=== PATIENT | female | born 2000 | race Caucasian/White ===

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

== ENCOUNTER 2018-01-09 15:49 | Emergency (ER) | payer OTHER ==
[~2018-01-09] VITALS: Ht 167.6 cm; Wt 86.2 kg
[2018-01-09 15:53] VITALS: BP 112/57
[2018-01-09] MEDS ORDERED: VALTREX1000 MG PO (16:04)
== END 2018-01-09 16:04 | disposition home or self-care (01) ==
LOC: ED 15:49
DX: A60.00 Herpesviral infection of urogenital system, unspecified (principal); Z87.891 Personal history of nicotine dependence; Z79.899 Other long term (current) drug therapy

== ENCOUNTER 2018-03-08 11:33 | Emergency (ER) | payer OTHER ==
[~2018-03-08] VITALS: Ht 167.6 cm; Wt 99.8 kg
[~2018-03-08 11:33] MED LIST changes: +VALTREX1000 MG PO
[2018-03-08 11:34] VITALS: BP 115/63
[2018-03-08] MEDS ORDERED: VALTREX500 MG PO (12:04)
[2018-03-08] MEDS ORDERED: PRENATAL 19 CH1 EACH PO (12:07)
== END 2018-03-08 13:34 | disposition home or self-care (01) ==
LOC: ED 11:33
DX: O98.311 Other infections with a predominantly sexual mode of transmission complicating pregnancy, first trimester (principal); A60.00 Herpesviral infection of urogenital system, unspecified; Z76.0 Encounter for issue of repeat prescription; Z3A.01 Less than 8 weeks gestation of pregnancy; Z87.891 Personal history of nicotine dependence

== ENCOUNTER 2018-03-17 09:04 | Emergency (ER) | payer SELFPAY ==
[~2018-03-17] VITALS: Ht 167.6 cm; Wt 96.6 kg
[~2018-03-17 09:04] MED LIST changes: +PRENATAL 19 CH1 EACH PO; +VALTREX500 MG PO
[2018-03-17 09:05] VITALS: BP 117/73
[2018-03-17] MEDS ORDERED: AMOXICILLIN500 M2 PO (09:51)
== END 2018-03-17 09:56 | disposition home or self-care (01) ==
LOC: ED 09:04
DX: O26.891 Other specified pregnancy related conditions, first trimester (principal); J02.9 Acute pharyngitis, unspecified; O99.321 Drug use complicating pregnancy, first trimester; H92.09 Otalgia, unspecified ear; F12.10 Cannabis abuse, uncomplicated; Z79.899 Other long term (current) drug therapy; Z87.891 Personal history of nicotine dependence; Z3A.01 Less than 8 weeks gestation of pregnancy

== ENCOUNTER 2019-01-05 20:14 | Emergency (ER) | payer OTHER ==
[~2019-01-05] VITALS: Ht 167.6 cm; Wt 104.3 kg
[~2019-01-05 20:14] MED LIST changes: +AMOXICILLIN500 M2 PO
[2019-01-05 20:15] VITALS: BP 129/72
== END 2019-01-05 23:31 | disposition home or self-care (01) ==
LOC: ED 20:14
DX: S70.11XA Contusion of right thigh, initial encounter (principal); S70.12XA Contusion of left thigh, initial encounter; Z79.899 Other long term (current) drug therapy; Z87.891 Personal history of nicotine dependence; V86.99XA Unspecified occupant of other special all-terrain or other off-road motor vehicle injured in nontraffic accident, initial encounter; Y93.89 Activity, other specified; Y92.89 Other specified places as the place of occurrence of the external cause; Y99.8 Other external cause status

== ENCOUNTER 2019-03-13 11:57 | Emergency (ER) | payer OTHER ==
[~2019-03-13] VITALS: Ht 167.6 cm; Wt 113.4 kg
[2019-03-13 11:57] VITALS: BP 109/68
[2019-03-13 12:21] LABS: BASO # 0.1 10*3/uL (0.0-0.1); BASO % 0.8 % (0.0-1.0); EOS # 0.1 10*3/uL (0.0-0.4); EOS % 1.5 % (1.0-4.0); HEMATOCRIT 38.7 % (37.0-47.0); HEMOGLOBIN 12.5 g/dl (12.0-16.0); LYMPH # 0.5 10*3/uL (1.3-4.4); LYMPH % 8.3 % (27.0-41.0); MEAN CELL VOLUME 89.8 fl (81.0-99.0); MEAN CORPUSCULAR HGB CONC 32.3 g/dl (33.0-37.0); MEAN PLATELET VOLUME 10.8 fl (9.6-12.3); MONO # 0.9 10*3/uL (0.1-1.0); MONO % 13.8 % (3.0-9.0); NEUT # 4.7 10*3/uL (2.3-7.9); NEUT % 75.3 % (47.0-73.0); PLATELET COUNT AUTOMATED 288 10*3/uL (130-400); RED BLOOD COUNT 4.31 10*6/uL (4.10-5.10); RED CELL DISTRI WIDTH 15.6 % (0-14.5); WHITE BLOOD COUNT 6.2 10*3/uL (4.8-10.8)
[2019-03-13 12:36] LABS: ALBUMIN 3.8 gm/dl (3.1-4.5); ALKALINE PHOSPHATASE 129 U/L (45-117); BUN 10 mg/dl (7-24); CHLORIDE 104 mmol/L (98-107); CREATININE 0.72 mg/dL (0.55-1.02); POTASSIUM 3.8 mmol/L (3.5-5.1); SGOT/AST 25 IU/L (3-35); SGPT/ALT 48 U/L (12-78); SODIUM 132 mmol/L (136-145); TOTAL PROTEIN 7.8 gm/dL (6.4-8.2)
[2019-03-13 12:44] LABS: BILIRUBIN NEGATIVE (NEGATIVE); BLOOD NEGATIVE (NEGATIVE); CLARITY SL CLOUDY (CLEAR); COLOR YELLOW (YELLOW); GLUCOSE NEGATIVE (NEGATIVE); KETONE NEGATIVE (NEGATIVE); LEUKO ESTERASE NEGATIVE (NEGATIVE); NITRITE NEGATIVE (NEGATIVE); PH 7.5 (5.0-9.0); UROBILINOGEN 0.2 E.U./dl (0.2-1.0)
[2019-03-13 13:14] LABS: BACTERIA 3+; EPITHELIAL CELLS 20-30
[2019-03-13] MEDS ORDERED: CEPHALEXIN500 M1 PO (14:42)
[2019-03-15 09:50] LABS: GONOCOCCUS BY NAA Negative (Negative)
== END 2019-03-13 14:48 | disposition home or self-care (01) ==
LOC: ED 11:57
PROVIDERS: Nurse Practitioner Family
DX: O23.41 Unspecified infection of urinary tract in pregnancy, first trimester (principal); B96.89 Other specified bacterial agents as the cause of diseases classified elsewhere; O98.311 Other infections with a predominantly sexual mode of transmission complicating pregnancy, first trimester; A59.9 Trichomoniasis, unspecified; O99.331 Smoking (tobacco) complicating pregnancy, first trimester; Z3A.01 Less than 8 weeks gestation of pregnancy; Z79.899 Other long term (current) drug therapy

== ENCOUNTER → 2019-09-19 | Outpatient (CLI) | payer OTHER ==
[~2019-09-19] MED LIST changes: +CEPHALEXIN500 M1 PO
== END | disposition home or self-care (01) ==
LOC: RAD 14:44
DX: R22.41 Localized swelling, mass and lump, right lower limb (principal); F17.200 Nicotine dependence, unspecified, uncomplicated; R05 Cough; R06.02 Shortness of breath

== ENCOUNTER 2022-12-26 11:48 | Emergency (ER) | payer OTHER ==
[~2022-12-26] VITALS: Ht 167.6 cm; Wt 134.3 kg
[2022-12-26 12:04] VITALS: BP 113/75
[2022-12-26] MEDS ORDERED: 'CLONIDINE0.1 MG PO (12:05)
[2022-12-26] MEDS ORDERED: IBU800 M1 PO (13:11)
[2022-12-26] MEDS ORDERED: CYCLOBENZAPRINE5 M3 PO (13:11)
== END 2022-12-26 13:23 | disposition home or self-care (01) ==
LOC: ED 11:48
DX: M25.511 Pain in right shoulder (principal); Z98.890 Other specified postprocedural states; F17.210 Nicotine dependence, cigarettes, uncomplicated; F12.90 Cannabis use, unspecified, uncomplicated; F31.9 Bipolar disorder, unspecified